=== PATIENT | male | born 1985 | race African-American/Black ===

== ENCOUNTER 2024-04-24 23:11 | Day surgery (SDC) | payer BC, OTHER ==
[2024-04-25] MEDS ORDERED: MAG HYDROX/AL HYDROX/SIMETH 30 ML UNIT-DOSE CUP ONE (00:15)
[2024-04-25] MEDS ORDERED: ACETAMINOPHEN INJECTION 100 ML ONE (00:15)
[2024-04-25] MEDS ORDERED: KETOROLAC TROMETHAMINE 30 MG/1 ML VIAL ONE (00:15)
[2024-04-25] MEDS: ACETAMINOPHEN 1000 MG/100 ML BAG IVPB ONE ×2 (00:33→06:45)
[2024-04-25] MEDS: SODIUM CHLORIDE 0.9% 500 ML INFUS.BAG IV ONE (00:33)
[2024-04-25] MEDS: MAG HYDROX/AL HYDROX/SIMETH 30 ML UNIT-DOSE CUP PO ONE (00:33)
[2024-04-25] MEDS: KETOROLAC TROMETHAMINE 30 MG/1 ML VIAL IVPUSH ONE (00:34)
[2024-04-25 00:43] LABS: BASO % 0.2 % (0-2.0); HEMOGLOBIN 13.8 GM/dL (11.7-16.9); LYMPH % 5.1 % (8-40); MCH 27.9 pg (25.7-33.7); MCHC 32.1 g/dl (32.0-35.9); MEAN CELL VOLUME 87.1 fl (80-96); MEAN PLT VOLUME 10.5 fl (7.5-11.1); MONO % 4.1 % (3.8-10.2); NEUT % 90.6 % (42.8-82.8); PLATELET COUNT 198 10^3/uL (134-434); RBC 4.94 M/mm3 (4.00-5.60); RDW 14.6 % (11.9-15.9); WHITE BLOOD COUNT 15.3 K/mm3 (4.0-10.0)
[2024-04-25 01:04] LABS: POTASSIUM 4.1 mmol/L (3.5-5.1)
[2024-04-25 01:06] LABS: ALBUMIN 4.1 g/dl (3.4-5.0); BLOOD UREA NITROGEN 10.5 mg/dL (7-18)
[2024-04-25 01:09] LABS: CREATININE 1.1 mg/dL (0.55-1.3)
[2024-04-25] MEDS: SODIUM CHLORIDE 1,000 ML IV STA (03:47)
[2024-04-25] MEDS ORDERED: PIPERACILLIN/TAZOB 3.375 GM 3.375 GM/50 ML BAG IVPB ONE (03:53)
[2024-04-25] MEDS: PIPERACILLIN/TAZOB 3.375 GM 3.375 GM in DEXTROSE 5%-WATER - 50 ML IVPB ONE (04:21)
[2024-04-25] MEDS: LACTATED RINGERS SOLUTION 1000 ML INFUS.BAG IV ONE (04:21)
[2024-04-25] MEDS ORDERED: morphine SULFATE 4 MG/ML VIAL ONE (04:55)
[2024-04-25] MEDS: morphine CARPU-JECT 4 MG/1 ML DISP.SYRIN IVPUSH ONE (05:00)
[2024-04-25 05:42] LABS: HEMOGLOBIN 13.5 GM/dL (11.7-16.9); MCH 27.9 pg (25.7-33.7); MCHC 32.1 g/dl (32.0-35.9); MEAN CELL VOLUME 86.9 fl (80-96); PLATELET COUNT 198 10^3/uL (134-434); RBC 4.84 M/mm3 (4.00-5.60); RDW 14.9 % (11.9-15.9); WHITE BLOOD COUNT 17.7 K/mm3 (4.0-10.0)
[2024-04-25] MEDS ORDERED: MORPHINE SULFATE 2 MG/ML SYRINGE IVPUSH PRN (05:55)
[2024-04-25 05:57] LABS: INR 1.13 (0.83-1.09)
[2024-04-25 06:03] LABS: POTASSIUM 3.9 mmol/L (3.5-5.1)
[2024-04-25 06:05] LABS: ALBUMIN 3.7 g/dl (3.4-5.0); BLOOD UREA NITROGEN 10.1 mg/dL (7-18); CALCIUM 9.1 mg/dL (8.5-10.1); MAGNESIUM 2.1 mg/dL (1.8-2.4)
[2024-04-25 06:08] LABS: CREATININE 1.1 mg/dL (0.55-1.3)
[2024-04-25 06:10] LABS: TOT PROT 7.6 g/dl (6.4-8.2)
[2024-04-25] MEDS: SODIUM CHLORIDE 1,000 ML IV SCH ×2 (06:43→15:48)
[2024-04-25] MEDS: PIPERACILLIN/TAZOB 3.375 GM 3.375 GM in DEXTROSE 5%-WATER - 50 ML IVPB SCH (09:21)
[2024-04-25 09:36] VITALS: BMI 37.2
[2024-04-25] MEDS ORDERED: oxyCODONE HCL 5 MG TABLET PO PRN ×3 (10:27→14:07)
[2024-04-25] MEDS ORDERED: ACETAMINOPHEN 325 MG TABLET (FP) PO PRN ×2 (10:27→13:47)
[2024-04-25] MEDS ORDERED: BUPIVACAINE HCL/PF 0.25% (2.5MG/ML) 10 ML VIAL ONE (12:10)
[2024-04-25] MEDS ORDERED: MIDAZOLAM HCL 2 MG/2 ML SINGLE DOSE VIAL ONE (12:22)
[2024-04-25] MEDS ORDERED: ROCURONIUM BROMIDE 50 MG/5 ML SYRINGE ONE ×2 (12:22→12:50)
[2024-04-25] MEDS ORDERED: PROPOFOL 20 ML ONE (12:22)
[2024-04-25] MEDS: ceFAZolin 2 GRAM PREMIX BAG IVPB ONE (12:57)
[2024-04-25] MEDS: BUPIVACAINE HCL/PF 0.25% (2.5MG/ML) 10 ML VIAL IJ ONE (12:58)
[2024-04-25] MEDS ORDERED: CEFOXITIN SODIUM/DEXTROSE,ISO 2 GM/50 ML BAG ONE ×2 (13:03→13:04)
[2024-04-25] MEDS ORDERED: HEPARIN NA (PORCINE) 5,000 UNITS/ML 1ML VIAL ONE (13:03)
[2024-04-25] MEDS ORDERED: SUGAMMADEX SODIUM 200 MG/2 ML VIAL ONE ×2 (13:19→13:27)
[2024-04-25] MEDS ORDERED: SODIUM CHLORIDE 1,000 ML IV SCH (13:47)
[2024-04-25] MEDS ORDERED: KETOROLAC TROMETHAMINE 15 MG/ML VIAL IVPUSH PRN (14:07)
[2024-04-25] MEDS ORDERED: LACTATED RINGERS SOLUTION 1,000 ML IV SCH (14:30)
[2024-04-25 15:34] VITALS: RESP 18
[2024-04-25] MEDS: PIPERACILLIN/TAZOB 3.375 GM 3.375 GM/50 ML BAG IVPB SCH (15:49)
[2024-04-25 18:05] VITALS: BP 137/90; PULSE 61; TEMP 97.7
[2024-04-25] MEDS ORDERED: ACETAMINOPHEN 325 MG TABLET (FP) PO SCH (20:00)
[2024-04-26] MEDS ORDERED: ENOXAPARIN NA (PORCINE) 40 MG/0.4 ML DISP.SYRIN SQ SCH ×3 (10:00)
== END 2024-04-25 18:52 | disposition home or self-care (01) ==
LOC: JER 23:11 → UNDOADMIN 04-25 03:22 → JERBED 04-25 03:22 → J8W 04-25 06:12 → JERBED 04-25 06:12 → JASUSAT 04-25 15:01 → J8W 04-25 15:01 → JASUSAT 04-25 18:52
PROVIDERS: ATTEND Internal Medicine
PROC: 0DTJ4ZZ Resection of Appendix, Percutaneous Endoscopic Approach (ICD-10-PCS; principal; 2024-04-25 12:00)
DX: K35.80 Unspecified acute appendicitis (principal)
CPT/HCPCS: 36415; 74177-TC; 80053; 83690; 83735; 85025; 85610; 86850; 86900; 86901; 87040; 88304-TC; 93005; 93010; 94760; 99285-25; J0131; J1644